=== PATIENT | female | born 1930 | race Caucasian/White ===

== ENCOUNTER 2017-11-21 13:50 | Inpatient (IN) | payer MEDICARE, OTHER ==
[~2017-11-21] VITALS: Ht 152.4 cm; Wt 64.5 kg
[~2017-11-21 13:50] MED LIST: ALBU18HF2 INH; BEPO10DR OP; BUDE180A3 INH; CALC-331 PO; CHOL20003 PO; DABI150C PO; FEXO180T94 PO; FLEC100T2 PO; FLUT16SP20 BOTHNARES; FURO-150 PO; GARL10004 PO; LEVO88TA39 PO; LISI-604 PO; MULT-1085 PO; VITC500T PO
[2017-11-21] MEDS ORDERED: ipratropium/albuterol 3ml nebule NEB ONE (14:40)
[2017-11-21 15:32] LABS: BASOPHILS # (AUTO) 0.1 X10'3 (0-0.2); BASOPHILS % (AUTO) 0.2 % (0-1); EOSINOPHILS % (AUTO) 0 % (0-6); HEMOGLOBIN 14.6 g/dl (12.0-16.0); LYMPHOCYTES # (AUTO) 0.5 X10'3 (1.1-4.8); LYMPHOCYTES % (AUTO) 2.1 % (21-51); MEAN CORPUSCULAR HEMOGLOBIN 32.4 PG (27.0-31.0); MEAN CORPUSCULAR HGB CONC 33.1 % (33.0-36.5); MEAN CORPUSCULAR VOLUME 97.8 FL (78-98); MEAN PLATELET VOLUME 7.8 FL (7.4-10.4); MONOCYTES # (AUTO) 0.7 X10'3 (0-0.9); MONOCYTES % (AUTO) 3.1 % (2-12); NEUTROPHILS # (AUTO) 20.9 X10'3 (1.8-7.7); NEUTROPHILS % (AUTO) 94.6 % (42-75); PLATELET COUNT 230 X10'3 (140-440); WHITE BLOOD COUNT 22.1 X10'3 (4.5-11.0)
[2017-11-21 15:43] LABS: INR 1.3 INR; PARTIAL THROMBOPLASTIN TIME 50 SECONDS (22-32); PROTHROMBIN TIME 13.8 SECONDS (9.0-12.0)
[2017-11-21 15:47] LABS: ALANINE AMINOTRANSFERASE 27 U/L (12-78); ALBUMIN 2.9 G/DL (3.4-5.0); ALBUMIN/GLOBULIN RATIO 0.7 (1.1-1.5); ALKALINE PHOSPHATASE 82 IU/L (46-116); ANION GAP 5 (8-16); ASPARTATE AMINO TRANSFERASE 19 U/L (10-37); BILIRUBIN,TOTAL 0.5 MG/DL (0.1-1.0); BLOOD UREA NITROGEN 13 MG/DL (7-18); BUN/CREATININE RATIO 10.7 (6.6-38.0); CHLORIDE 98 MMOL/L (99-107); CREATININE 1.22 MG/DL (0.40-0.90); GLUCOSE 118 MG/DL (70-104); SODIUM 133 MMOL/L (135-145); TOTAL CARBON DIOXIDE 30.5 MMOL/L (24-32); TOTAL PROTEIN 7.3 G/DL (6.4-8.2); eGFR 42 ML/MIN
[2017-11-21 17:19] LABS: CLARITY,URINE SLIGHTLY CLOUDY (Clear); COLOR,URINE YELLOW (Yellow); GLUCOSE, URINE NEGATIVE (Neg); KETONES,URINE TRACE mg/dl (Neg); LEUKOCYTE ESTERASE ,URINE NEGATIVE (Neg); NITRITES, URINE NEGATIVE (Neg); OCCULT BLOOD,URINE NEGATIVE (Neg); PH,URINE 6.5 (4.8-8.0); PROTEIN,URINE NEGATIVE (Neg); UROBILINOGEN,URINE 0.2 E.U/dL (0.2-1.0)
[2017-11-21 17:21] LABS: UA COLLECTION TYPE CLN CATCH MIDSTREAM
[2017-11-21 17:32] LABS: RBC,URINE 0-2 /HPF (0-2); WBC,URINE 0-4 /HPF (0-4)
[2017-11-21 17:33] LABS: BACTERIA,URINE FEW /HPF (Neg); SQUAMOUS EPITHELIAL CELL,UR MANY /LPF (FEW)
[2017-11-21] MEDS ORDERED: normal saline 1000ML IV soln IVB ONE (17:40)
[2017-11-21] MEDS ORDERED: levoFLOXACIN-Levaquin 500mg/D5 100 ML IV ONE (18:15)
[2017-11-21] MEDS ORDERED: POTA10CA69 (19:39)
[2017-11-21] MEDS ORDERED: methylPREDNISolone sod succ 125mg/2ml vial IV ONE (19:55)
[2017-11-21] MEDS: normal saline 1000ml 1,000 ML IV SCH (20:36)
[2017-11-21] MEDS ORDERED: ondansetron/PF 4mg/2ml inj IV PRN (20:40)
[2017-11-21] MEDS ORDERED: acetaminophen 325mg tablet PO PRN ×2 (20:40)
[2017-11-21] MEDS ORDERED: mag hydrox/Alum hydrox/simeth 30ml oral suspension PO PRN (20:40)
[2017-11-21] MEDS ORDERED: magnesium hydroxide 30ml (MOM) UD suspension PO PRN (20:40)
[2017-11-21] MEDS: flecainide 50mg tablet PO SCH (22:20)
[2017-11-21] MEDS: lisinopril 5mg tablet PO SCH (22:20)
[2017-11-21] MEDS: dabigatran 150mg capsule PO SCH (22:20)
[2017-11-21 22:45] VITALS: BP 106/68
[2017-11-22] MEDS: methylPREDNISolone sod succ 125mg/2ml vial IV SCH ×3 (01:41→16:43)
[2017-11-22] MEDS: ipratropium/albuterol 3ml nebule NEB PRN ×3 (01:48→12:54)
[2017-11-22 05:15] LABS: ALBUMIN 2.2 G/DL (3.4-5.0); ANION GAP 8 (8-16); BLOOD UREA NITROGEN 13 MG/DL (7-18); BUN/CREATININE RATIO 11.7 (6.6-38.0); CALCIUM 7.9 MG/DL (8.5-10.1); CHLORIDE 104 MMOL/L (99-107); CREATININE 1.11 MG/DL (0.40-0.90); GLUCOSE 163 MG/DL (70-104); POTASSIUM 4.2 MMOL/L (3.5-5.1); SODIUM 136 MMOL/L (135-145); TOTAL CARBON DIOXIDE 24.3 MMOL/L (24-32); eGFR 46 ML/MIN
[2017-11-22 06:00] VITALS: BP 112/57
[2017-11-22 06:12] LABS: BASOPHILS # (AUTO) 0.1 X10'3 (0-0.2); BASOPHILS % (AUTO) 0.4 % (0-1); EOSINOPHILS % (AUTO) 0 % (0-6); HEMATOCRIT 38.6 % (35.0-45.0); HEMOGLOBIN 12.8 g/dl (12.0-16.0); LYMPHOCYTES # (AUTO) 0.4 X10'3 (1.1-4.8); LYMPHOCYTES % (AUTO) 1.4 % (21-51); MEAN CORPUSCULAR HEMOGLOBIN 32.6 PG (27.0-31.0); MEAN CORPUSCULAR HGB CONC 33.1 % (33.0-36.5); MEAN CORPUSCULAR VOLUME 98.4 FL (78-98); MEAN PLATELET VOLUME 8.8 FL (7.4-10.4); MONOCYTES # (AUTO) 0.5 X10'3 (0-0.9); MONOCYTES % (AUTO) 1.8 % (2-12); NEUTROPHILS % (AUTO) 96.4 % (42-75); PLATELET COUNT 206 X10'3 (140-440); RED BLOOD COUNT 3.92 X10'6 (4.20-5.60); RED CELL DISTRIBUTION WIDTH 15.2 % (11.5-14.5)
[2017-11-22] MEDS: normal saline 1000ml 1,000 ML IV SCH ×3 (06:36→19:55)
[2017-11-22 06:54] LABS: BANDS% (MANUAL) 5 % (0-10); LYMPHOCYTES % (MANUAL) 1 % (21-51); MONOCYTES % (MANUAL) 2 % (2-12); NEUTROPHILS % (MANUAL) 92 % (42-75); PLATELET ESTIMATE NORMAL; TOTAL CELLS COUNTED 100
[2017-11-22] MEDS: fluticasone furoate 100MCG/puff inhaler IH SCH (08:40)
[2017-11-22] MEDS: dabigatran 150mg capsule PO SCH ×2 (09:09→19:52)
[2017-11-22] MEDS: levoTHYROXINE 88mcg tablet PO SCH (09:10)
[2017-11-22] MEDS: flecainide 50mg tablet PO SCH ×2 (09:10→19:52)
[2017-11-22] MEDS: cetirizine 10mg tablet PO SCH (09:11)
[2017-11-22] MEDS: lisinopril 5mg tablet PO SCH (09:11)
[2017-11-22] MEDS: levoFLOXACIN-Levaquin 750MG/D5 150 ML IV SCH (09:12)
[2017-11-22 11:00] VITALS: BP 115/48
[2017-11-22] MEDS ORDERED: guaiFENesin 200 MG/10 ML oral syrup UD cup PO PRN (17:45)
[2017-11-22] MEDS: ipratropium/albuterol 3ml nebule NEB SCH ×2 (19:39→23:03)
[2017-11-22 20:00] VITALS: BP 152/79
[2017-11-23] VITALS: BP_SYST 100; BP_SYST 142; BP_DIAS 48; BP_DIAS 88
[2017-11-23] MEDS: methylPREDNISolone sod succ 125mg/2ml vial IV SCH ×3 (00:10→20:10)
[2017-11-23] MEDS: ipratropium/albuterol 3ml nebule NEB SCH ×6 (03:27→23:32)
[2017-11-23 05:55] LABS: BASOPHILS % (AUTO) 0 % (0-1); EOSINOPHILS % (AUTO) 0 % (0-6); HEMATOCRIT 38.9 % (35.0-45.0); HEMOGLOBIN 12.6 g/dl (12.0-16.0); LYMPHOCYTES # (AUTO) 0.5 X10'3 (1.1-4.8); LYMPHOCYTES % (AUTO) 2.2 % (21-51); MEAN CORPUSCULAR HEMOGLOBIN 32.6 PG (27.0-31.0); MEAN CORPUSCULAR HGB CONC 32.5 % (33.0-36.5); MEAN CORPUSCULAR VOLUME 100.2 FL (78-98); MEAN PLATELET VOLUME 8.3 FL (7.4-10.4); MONOCYTES # (AUTO) 0.4 X10'3 (0-0.9); MONOCYTES % (AUTO) 1.9 % (2-12); NEUTROPHILS # (AUTO) 19.9 X10'3 (1.8-7.7); NEUTROPHILS % (AUTO) 95.9 % (42-75); PLATELET COUNT 224 X10'3 (140-440); RED BLOOD COUNT 3.88 X10'6 (4.20-5.60); RED CELL DISTRIBUTION WIDTH 15.4 % (11.5-14.5); WHITE BLOOD COUNT 20.7 X10'3 (4.5-11.0)
[2017-11-23 06:19] LABS: ALBUMIN 2.1 G/DL (3.4-5.0); ANION GAP 4 (8-16); BLOOD UREA NITROGEN 15 MG/DL (7-18); BUN/CREATININE RATIO 15.8 (6.6-38.0); CALCIUM 8.2 MG/DL (8.5-10.1); CHLORIDE 107 MMOL/L (99-107); CREATININE 0.95 MG/DL (0.40-0.90); GLUCOSE 131 MG/DL (70-104); POTASSIUM 4.5 MMOL/L (3.5-5.1); SODIUM 137 MMOL/L (135-145); TOTAL CARBON DIOXIDE 25.9 MMOL/L (24-32); eGFR 55 ML/MIN
[2017-11-23 07:00] VITALS: BP 134/83
[2017-11-23] MEDS: fluticasone furoate 100MCG/puff inhaler IH SCH (07:41)
[2017-11-23] MEDS: levoFLOXACIN-Levaquin 750MG/D5 150 ML IV SCH (07:41)
[2017-11-23] MEDS: cetirizine 10mg tablet PO SCH (07:42)
[2017-11-23] MEDS: LACTOBACILLUS RHAMNOSUS GG 15 billion unit sprinkle caps PO SCH (07:42)
[2017-11-23] MEDS: levoTHYROXINE 88mcg tablet PO SCH (07:42)
[2017-11-23] MEDS: flecainide 50mg tablet PO SCH ×2 (07:42→20:10)
[2017-11-23] MEDS: dabigatran 150mg capsule PO SCH ×2 (07:42→20:10)
[2017-11-23] MEDS: lisinopril 5mg tablet PO SCH (07:42)
[2017-11-23 11:36] VITALS: BP 165/82
[2017-11-23] MEDS ORDERED: methylPREDNISolone sod succ 125mg/2ml vial IV SCH (16:00)
[2017-11-23] MEDS: cefepime 1GM/NS ADD-VANTAGE 100 ML IV SCH (16:48)
[2017-11-23 20:00] VITALS: BP 138/83
[2017-11-23] MEDS ORDERED: ciprofloxacin 500MG tablet PO SCH (20:00)
[2017-11-24] VITALS (14 sets, daily range): BP systolic 114–153; BP diastolic 60–99
[2017-11-24] MEDS: cefepime 1GM/NS ADD-VANTAGE 100 ML IV SCH ×3 (00:13→16:23)
[2017-11-24] MEDS: ipratropium/albuterol 3ml nebule NEB SCH ×6 (03:21→23:15)
[2017-11-24 03:44] LABS: BASOPHILS % (AUTO) 0 % (0-1); EOSINOPHILS % (AUTO) 0 % (0-6); HEMOGLOBIN 13.2 g/dl (12.0-16.0); LYMPHOCYTES # (AUTO) 0.5 X10'3 (1.1-4.8); LYMPHOCYTES % (AUTO) 2.5 % (21-51); MEAN CORPUSCULAR HEMOGLOBIN 32.5 PG (27.0-31.0); MEAN CORPUSCULAR HGB CONC 32.9 % (33.0-36.5); MEAN CORPUSCULAR VOLUME 98.8 FL (78-98); MEAN PLATELET VOLUME 8.3 FL (7.4-10.4); MONOCYTES # (AUTO) 0.4 X10'3 (0-0.9); MONOCYTES % (AUTO) 2.4 % (2-12); NEUTROPHILS % (AUTO) 95.1 % (42-75); PLATELET COUNT 254 X10'3 (140-440); RED BLOOD COUNT 4.05 X10'6 (4.20-5.60); WHITE BLOOD COUNT 17.9 X10'3 (4.5-11.0)
[2017-11-24 03:52] LABS: ALBUMIN 2.3 G/DL (3.4-5.0); ANION GAP 8 (8-16); BLOOD UREA NITROGEN 15 MG/DL (7-18); BUN/CREATININE RATIO 14.6 (6.6-38.0); CALCIUM 8.3 MG/DL (8.5-10.1); CHLORIDE 108 MMOL/L (99-107); CREATININE 1.03 MG/DL (0.40-0.90); GLUCOSE 125 MG/DL (70-104); POTASSIUM 4.2 MMOL/L (3.5-5.1); SODIUM 141 MMOL/L (135-145); eGFR 50 ML/MIN
[2017-11-24] MEDS: lisinopril 5mg tablet PO SCH (07:56)
[2017-11-24] MEDS: LACTOBACILLUS RHAMNOSUS GG 15 billion unit sprinkle caps PO SCH (07:56)
[2017-11-24] MEDS: levoTHYROXINE 88mcg tablet PO SCH (07:56)
[2017-11-24] MEDS: dabigatran 150mg capsule PO SCH ×2 (07:56→20:00)
[2017-11-24] MEDS: methylPREDNISolone sod succ 125mg/2ml vial IV SCH ×2 (07:56→20:00)
[2017-11-24] MEDS: cetirizine 10mg tablet PO SCH (07:57)
[2017-11-24] MEDS: flecainide 50mg tablet PO SCH (07:57)
[2017-11-24] MEDS: fluticasone furoate 100MCG/puff inhaler IH SCH (08:13)
[2017-11-24] MEDS ORDERED: diltiazem-D5W 125mg/125ml 125 ML IV PRN (08:33)
[2017-11-24] MEDS ORDERED: diltiazem 5mg/ml 5ml inj. IV STA (08:33)
[2017-11-24 10:00] LABS: MAGNESIUM 2.1 MG/DL (1.5-2.4); TROPONIN I 0.04 NG/ML (0.0-0.05)
[2017-11-24] MEDS ORDERED: diltiazem 5mg/ml 5ml inj. IV ONE (10:55)
[2017-11-24] MEDS ORDERED: diltiazem CD 120mg capsule (once-daily) PO SCH (15:25)
[2017-11-25] MEDS: cefepime 1GM/NS ADD-VANTAGE 100 ML IV SCH ×3 (00:22→16:16)
[2017-11-25 03:00] VITALS: BP 164/79
[2017-11-25] MEDS: ipratropium/albuterol 3ml nebule NEB SCH ×5 (03:27→20:09)
[2017-11-25 06:00] VITALS: BP 129/66
[2017-11-25 06:05] LABS: BASOPHILS # (AUTO) 0.1 X10'3 (0-0.2); BASOPHILS % (AUTO) 0.9 % (0-1); EOSINOPHILS % (AUTO) 0.2 % (0-6); HEMATOCRIT 40.5 % (35.0-45.0); HEMOGLOBIN 13.5 g/dl (12.0-16.0); LYMPHOCYTES # (AUTO) 0.4 X10'3 (1.1-4.8); LYMPHOCYTES % (AUTO) 2.7 % (21-51); MEAN CORPUSCULAR HEMOGLOBIN 32.6 PG (27.0-31.0); MEAN CORPUSCULAR HGB CONC 33.3 % (33.0-36.5); MEAN CORPUSCULAR VOLUME 97.9 FL (78-98); MEAN PLATELET VOLUME 8.4 FL (7.4-10.4); MONOCYTES # (AUTO) 0.4 X10'3 (0-0.9); MONOCYTES % (AUTO) 2.6 % (2-12); NEUTROPHILS # (AUTO) 13.3 X10'3 (1.8-7.7); NEUTROPHILS % (AUTO) 93.6 % (42-75); PLATELET COUNT 263 X10'3 (140-440); RED BLOOD COUNT 4.14 X10'6 (4.20-5.60); RED CELL DISTRIBUTION WIDTH 15.8 % (11.5-14.5); WHITE BLOOD COUNT 14.2 X10'3 (4.5-11.0)
[2017-11-25 06:23] LABS: ALBUMIN 2.2 G/DL (3.4-5.0); ANION GAP 7 (8-16); BLOOD UREA NITROGEN 16 MG/DL (7-18); BUN/CREATININE RATIO 17.2 (6.6-38.0); CALCIUM 8.7 MG/DL (8.5-10.1); CHLORIDE 109 MMOL/L (99-107); CREATININE 0.93 MG/DL (0.40-0.90); GLUCOSE 126 MG/DL (70-104); SODIUM 142 MMOL/L (135-145); TOTAL CARBON DIOXIDE 26.4 MMOL/L (24-32); eGFR 57 ML/MIN
[2017-11-25] MEDS: methylPREDNISolone sod succ 125mg/2ml vial IV SCH ×2 (08:30→20:56)
[2017-11-25] MEDS: diltiazem CD 120mg capsule (once-daily) PO SCH (08:31)
[2017-11-25] MEDS: LACTOBACILLUS RHAMNOSUS GG 15 billion unit sprinkle caps PO SCH (08:31)
[2017-11-25] MEDS: cetirizine 10mg tablet PO SCH (08:31)
[2017-11-25] MEDS: dabigatran 150mg capsule PO SCH ×2 (08:31→20:56)
[2017-11-25] MEDS: lisinopril 5mg tablet PO SCH (08:31)
[2017-11-25] MEDS: levoTHYROXINE 88mcg tablet PO SCH (08:31)
[2017-11-25] MEDS: fluticasone furoate 100MCG/puff inhaler IH SCH (08:40)
[2017-11-25 11:00] VITALS: BP 122/77
[2017-11-25 15:00] VITALS: BP 121/63
[2017-11-25 18:00] VITALS: BP 121/81
[2017-11-25 22:00] VITALS: BP 130/76
[2017-11-26] MEDS: ipratropium/albuterol 3ml nebule NEB SCH ×7 (00:02→23:15)
[2017-11-26] MEDS: cefepime 1GM/NS ADD-VANTAGE 100 ML IV SCH ×3 (00:39→16:47)
[2017-11-26 02:00] VITALS: BP 132/82
[2017-11-26 06:00] VITALS: BP 170/60
[2017-11-26 06:08] LABS: BASOPHILS % (AUTO) 0 % (0-1); EOSINOPHILS % (AUTO) 0 % (0-6); HEMATOCRIT 40.1 % (35.0-45.0); HEMOGLOBIN 13.3 g/dl (12.0-16.0); LYMPHOCYTES # (AUTO) 0.8 X10'3 (1.1-4.8); LYMPHOCYTES % (AUTO) 6.6 % (21-51); MEAN CORPUSCULAR HEMOGLOBIN 32.7 PG (27.0-31.0); MEAN CORPUSCULAR HGB CONC 33.1 % (33.0-36.5); MEAN CORPUSCULAR VOLUME 98.5 FL (78-98); MEAN PLATELET VOLUME 8.4 FL (7.4-10.4); MONOCYTES # (AUTO) 0.3 X10'3 (0-0.9); MONOCYTES % (AUTO) 2.2 % (2-12); NEUTROPHILS # (AUTO) 10.9 X10'3 (1.8-7.7); NEUTROPHILS % (AUTO) 91.2 % (42-75); PLATELET COUNT 262 X10'3 (140-440); RED BLOOD COUNT 4.07 X10'6 (4.20-5.60); RED CELL DISTRIBUTION WIDTH 15.6 % (11.5-14.5)
[2017-11-26 06:18] LABS: ALBUMIN 2.2 G/DL (3.4-5.0); ANION GAP 3 (8-16); BLOOD UREA NITROGEN 19 MG/DL (7-18); BUN/CREATININE RATIO 22.9 (6.6-38.0); CALCIUM 8.8 MG/DL (8.5-10.1); CHLORIDE 108 MMOL/L (99-107); CREATININE 0.83 MG/DL (0.40-0.90); GLUCOSE 124 MG/DL (70-104); POTASSIUM 3.9 MMOL/L (3.5-5.1); SODIUM 141 MMOL/L (135-145); eGFR 65 ML/MIN
[2017-11-26] MEDS: methylPREDNISolone sod succ 125mg/2ml vial IV SCH (07:15)
[2017-11-26] MEDS: LACTOBACILLUS RHAMNOSUS GG 15 billion unit sprinkle caps PO SCH (07:15)
[2017-11-26] MEDS: lisinopril 5mg tablet PO SCH (07:15)
[2017-11-26] MEDS: levoTHYROXINE 88mcg tablet PO SCH (07:15)
[2017-11-26] MEDS: diltiazem CD 120mg capsule (once-daily) PO SCH (07:15)
[2017-11-26] MEDS: dabigatran 150mg capsule PO SCH ×2 (07:15→20:32)
[2017-11-26] MEDS: cetirizine 10mg tablet PO SCH (07:15)
[2017-11-26] MEDS: fluticasone furoate 100MCG/puff inhaler IH SCH (08:00)
[2017-11-26] MEDS ORDERED: diltiazem 30mg tablet PO ONE ×3 (09:50→22:00)
[2017-11-26 11:00] VITALS: BP 154/83
[2017-11-26 15:00] VITALS: BP 136/79
[2017-11-26] MEDS: Protein Shake (high protein) 240ml (8oz) cup PO SCH (18:44)
[2017-11-26 22:00] VITALS: BP 132/84
[2017-11-27] MEDS: cefepime 1GM/NS ADD-VANTAGE 100 ML IV SCH ×3 (00:12→16:06)
[2017-11-27] MEDS ORDERED: diltiazem 30mg tablet PO ONE (01:10)
[2017-11-27 02:00] VITALS: BP 142/83
[2017-11-27] MEDS: ipratropium/albuterol 3ml nebule NEB SCH ×2 (03:19→08:14)
[2017-11-27 05:59] LABS: BASOPHILS # (AUTO) 0.1 X10'3 (0-0.2); BASOPHILS % (AUTO) 0.4 % (0-1); EOSINOPHILS # (AUTO) 0.2 X10'3 (0-0.9); HEMATOCRIT 41.2 % (35.0-45.0); HEMOGLOBIN 13.6 g/dl (12.0-16.0); LYMPHOCYTES # (AUTO) 0.4 X10'3 (1.1-4.8); LYMPHOCYTES % (AUTO) 2.8 % (21-51); MEAN CORPUSCULAR HEMOGLOBIN 32.7 PG (27.0-31.0); MEAN PLATELET VOLUME 8.2 FL (7.4-10.4); MONOCYTES # (AUTO) 0.7 X10'3 (0-0.9); MONOCYTES % (AUTO) 4.2 % (2-12); NEUTROPHILS # (AUTO) 14.6 X10'3 (1.8-7.7); NEUTROPHILS % (AUTO) 91.6 % (42-75); PLATELET COUNT 288 X10'3 (140-440); RED BLOOD COUNT 4.17 X10'6 (4.20-5.60); RED CELL DISTRIBUTION WIDTH 15.7 % (11.5-14.5); WHITE BLOOD COUNT 15.9 X10'3 (4.5-11.0)
[2017-11-27 06:00] VITALS: BP 137/84
[2017-11-27 06:14] LABS: ALANINE AMINOTRANSFERASE 54 U/L (12-78); ALBUMIN 2.4 G/DL (3.4-5.0); ALBUMIN/GLOBULIN RATIO 0.7 (1.1-1.5); ALKALINE PHOSPHATASE 53 IU/L (46-116); ANION GAP 5 (8-16); ASPARTATE AMINO TRANSFERASE 34 U/L (10-37); BILIRUBIN,TOTAL 0.5 MG/DL (0.1-1.0); BLOOD UREA NITROGEN 19 MG/DL (7-18); CALCIUM 8.9 MG/DL (8.5-10.1); CHLORIDE 105 MMOL/L (99-107); GLUCOSE 107 MG/DL (70-104); POTASSIUM 3.8 MMOL/L (3.5-5.1); SODIUM 140 MMOL/L (135-145); TOTAL CARBON DIOXIDE 30.3 MMOL/L (24-32); TOTAL PROTEIN 5.9 G/DL (6.4-8.2); eGFR 52 ML/MIN
[2017-11-27] MEDS: Protein Shake (high protein) 240ml (8oz) cup PO SCH ×3 (08:00→18:00)
[2017-11-27] MEDS ORDERED: diltiazem CD 300mg capsule (once-daily) PO SCH (08:00)
[2017-11-27] MEDS: levoTHYROXINE 88mcg tablet PO SCH (08:14)
[2017-11-27] MEDS: lisinopril 5mg tablet PO SCH (08:14)
[2017-11-27] MEDS: predniSONE 20 mg tablet PO SCH (08:14)
[2017-11-27] MEDS: diltiazem CD 180mg cap (once-daily) PO SCH (08:15)
[2017-11-27] MEDS: dabigatran 150mg capsule PO SCH ×2 (08:15→19:50)
[2017-11-27] MEDS: LACTOBACILLUS RHAMNOSUS GG 15 billion unit sprinkle caps PO SCH (08:15)
[2017-11-27] MEDS: cetirizine 10mg tablet PO SCH (08:16)
[2017-11-27] MEDS: fluticasone furoate 100MCG/puff inhaler IH SCH (08:17)
[2017-11-27] MEDS ORDERED: digoxin 250mcg/ml 2ml ampule IV ONE (10:02)
[2017-11-27 11:00] VITALS: BP 139/86
[2017-11-27 16:58] LABS: MAGNESIUM 1.8 MG/DL (1.5-2.4)
[2017-11-27 19:00] VITALS: BP 130/88
[2017-11-27 23:00] VITALS: BP 141/98
[2017-11-28] VITALS (8 sets, daily range): BP systolic 110–134; BP diastolic 64–98
[2017-11-28] MEDS: cefepime 1GM/NS ADD-VANTAGE 100 ML IV SCH ×3 (00:07→16:44)
[2017-11-28 03:30] LABS: BASOPHILS % (AUTO) 0.3 % (0-1); EOSINOPHILS # (AUTO) 0.1 X10'3 (0-0.9); EOSINOPHILS % (AUTO) 0.6 % (0-6); HEMATOCRIT 41.6 % (35.0-45.0); HEMOGLOBIN 13.9 g/dl (12.0-16.0); LYMPHOCYTES # (AUTO) 0.9 X10'3 (1.1-4.8); LYMPHOCYTES % (AUTO) 5.4 % (21-51); MEAN CORPUSCULAR HEMOGLOBIN 32.6 PG (27.0-31.0); MEAN CORPUSCULAR HGB CONC 33.3 % (33.0-36.5); MEAN CORPUSCULAR VOLUME 97.9 FL (78-98); MEAN PLATELET VOLUME 7.7 FL (7.4-10.4); MONOCYTES # (AUTO) 0.7 X10'3 (0-0.9); MONOCYTES % (AUTO) 4.2 % (2-12); NEUTROPHILS # (AUTO) 14.2 X10'3 (1.8-7.7); NEUTROPHILS % (AUTO) 89.5 % (42-75); PLATELET COUNT 278 X10'3 (140-440); RED BLOOD COUNT 4.25 X10'6 (4.20-5.60); RED CELL DISTRIBUTION WIDTH 15.4 % (11.5-14.5); WHITE BLOOD COUNT 15.8 X10'3 (4.5-11.0)
[2017-11-28 03:45] LABS: ALANINE AMINOTRANSFERASE 58 U/L (12-78); ALBUMIN 2.3 G/DL (3.4-5.0); ALBUMIN/GLOBULIN RATIO 0.6 (1.1-1.5); ALKALINE PHOSPHATASE 55 IU/L (46-116); ANION GAP 1 (8-16); ASPARTATE AMINO TRANSFERASE 32 U/L (10-37); BILIRUBIN,TOTAL 0.5 MG/DL (0.1-1.0); BLOOD UREA NITROGEN 24 MG/DL (7-18); BUN/CREATININE RATIO 26.7 (6.6-38.0); CALCIUM 9.1 MG/DL (8.5-10.1); CHLORIDE 105 MMOL/L (99-107); GLUCOSE 96 MG/DL (70-104); POTASSIUM 4.3 MMOL/L (3.5-5.1); SODIUM 140 MMOL/L (135-145); TOTAL CARBON DIOXIDE 33.7 MMOL/L (24-32); TOTAL PROTEIN 5.9 G/DL (6.4-8.2); eGFR 59 ML/MIN
[2017-11-28] MEDS ORDERED: digoxin 125mcg (0.125mg) tablet PO SCH (08:00)
[2017-11-28] MEDS: LACTOBACILLUS RHAMNOSUS GG 15 billion unit sprinkle caps PO SCH (08:23)
[2017-11-28] MEDS: diltiazem CD 180mg cap (once-daily) PO SCH (08:24)
[2017-11-28] MEDS: cetirizine 10mg tablet PO SCH (08:24)
[2017-11-28] MEDS: predniSONE 20 mg tablet PO SCH (08:24)
[2017-11-28] MEDS: lisinopril 5mg tablet PO SCH (08:24)
[2017-11-28] MEDS: levoTHYROXINE 88mcg tablet PO SCH (08:24)
[2017-11-28] MEDS: Protein Shake (high protein) 240ml (8oz) cup PO SCH ×3 (08:25→18:05)
[2017-11-28] MEDS: dabigatran 150mg capsule PO SCH ×2 (08:29→20:52)
[2017-11-28] MEDS: fluticasone furoate 100MCG/puff inhaler IH SCH (08:49)
[2017-11-28] MEDS ORDERED: amiodarone 150mg/dext, iso-os 100 ML IV ONE (12:45)
[2017-11-28] MEDS: amiodarone/D5 450MG/250ML BAG 250 ML IV SCH ×2 (13:32→21:17)
[2017-11-28] MEDS: furosemide 20 MG/2 ML vial IV SCH ×2 (13:39→20:52)
[2017-11-28] MEDS: albuterol 2.5 MG/3 ML nebule NEB PRN (20:53)
[2017-11-29] VITALS (10 sets, daily range): BP systolic 107–136; BP diastolic 68–98
[2017-11-29] MEDS: cefepime 1GM/NS ADD-VANTAGE 100 ML IV SCH ×3 (00:40→16:45)
[2017-11-29 06:08] LABS: BASOPHILS # (AUTO) 0.1 X10'3 (0-0.2); BASOPHILS % (AUTO) 0.6 % (0-1); EOSINOPHILS # (AUTO) 0.2 X10'3 (0-0.9); EOSINOPHILS % (AUTO) 1.1 % (0-6); HEMATOCRIT 45.5 % (35.0-45.0); HEMOGLOBIN 14.9 g/dl (12.0-16.0); LYMPHOCYTES # (AUTO) 1.6 X10'3 (1.1-4.8); LYMPHOCYTES % (AUTO) 11.2 % (21-51); MEAN CORPUSCULAR HEMOGLOBIN 32.1 PG (27.0-31.0); MEAN CORPUSCULAR HGB CONC 32.7 % (33.0-36.5); MEAN CORPUSCULAR VOLUME 98.2 FL (78-98); MEAN PLATELET VOLUME 8.4 FL (7.4-10.4); MONOCYTES # (AUTO) 0.7 X10'3 (0-0.9); MONOCYTES % (AUTO) 4.8 % (2-12); NEUTROPHILS # (AUTO) 11.5 X10'3 (1.8-7.7); NEUTROPHILS % (AUTO) 82.3 % (42-75); PLATELET COUNT 292 X10'3 (140-440); RED BLOOD COUNT 4.63 X10'6 (4.20-5.60); RED CELL DISTRIBUTION WIDTH 15.4 % (11.5-14.5)
[2017-11-29 06:33] LABS: ALANINE AMINOTRANSFERASE 58 U/L (12-78); ALBUMIN 2.4 G/DL (3.4-5.0); ALBUMIN/GLOBULIN RATIO 0.6 (1.1-1.5); ALKALINE PHOSPHATASE 57 IU/L (46-116); ANION GAP 5 (8-16); ASPARTATE AMINO TRANSFERASE 27 U/L (10-37); BILIRUBIN,TOTAL 0.5 MG/DL (0.1-1.0); BLOOD UREA NITROGEN 29 MG/DL (7-18); BUN/CREATININE RATIO 26.4 (6.6-38.0); CALCIUM 9.2 MG/DL (8.5-10.1); CHLORIDE 101 MMOL/L (99-107); GLUCOSE 86 MG/DL (70-104); SODIUM 140 MMOL/L (135-145); TOTAL CARBON DIOXIDE 33.9 MMOL/L (24-32); TOTAL PROTEIN 6.2 G/DL (6.4-8.2); eGFR 47 ML/MIN
[2017-11-29] MEDS: cetirizine 10mg tablet PO SCH (07:44)
[2017-11-29] MEDS: levoTHYROXINE 88mcg tablet PO SCH (07:45)
[2017-11-29] MEDS: LACTOBACILLUS RHAMNOSUS GG 15 billion unit sprinkle caps PO SCH (07:45)
[2017-11-29] MEDS: predniSONE 20 mg tablet PO SCH (07:45)
[2017-11-29] MEDS: diltiazem CD 180mg cap (once-daily) PO SCH (07:45)
[2017-11-29] MEDS: lisinopril 5mg tablet PO SCH (07:45)
[2017-11-29] MEDS: dabigatran 150mg capsule PO SCH ×2 (07:47→20:37)
[2017-11-29] MEDS: Protein Shake (high protein) 240ml (8oz) cup PO SCH ×4 (08:00→20:38)
[2017-11-29] MEDS: albuterol 2.5 MG/3 ML nebule NEB PRN ×2 (08:32→18:41)
[2017-11-29] MEDS: fluticasone furoate 100MCG/puff inhaler IH SCH ×2 (08:35→10:59)
[2017-11-29] MEDS: furosemide 20 MG/2 ML vial IV SCH ×2 (09:12→20:37)
[2017-11-29] MEDS ORDERED: metoprolol tartrate 12.5mg (1/2 tablet) PO SCH (09:45)
[2017-11-29] MEDS ORDERED: digoxin 250mcg/ml 2ml ampule IV SCH (12:40)
[2017-11-29] MEDS ORDERED: digoxin 250mcg/ml 2ml ampule IV ONE (12:55)
[2017-11-29] MEDS: diltiazem 30mg tablet PO SCH ×2 (14:48→20:37)
[2017-11-29] MEDS: amiodarone 200mg tablet PO SCH ×2 (14:48→20:38)
[2017-11-29] MEDS ORDERED: amiodarone/D5 360MG/200ML BAG 250 ML IV SCH (16:45)
[2017-11-30] MEDS: cefepime 1GM/NS ADD-VANTAGE 100 ML IV SCH ×2 (00:27→07:43)
[2017-11-30 03:00] VITALS: BP 128/81
[2017-11-30 05:29] LABS: BASOPHILS % (AUTO) 0.1 % (0-1); EOSINOPHILS # (AUTO) 0.1 X10'3 (0-0.9); EOSINOPHILS % (AUTO) 0.4 % (0-6); HEMATOCRIT 43.7 % (35.0-45.0); HEMOGLOBIN 14.6 g/dl (12.0-16.0); LYMPHOCYTES # (AUTO) 0.9 X10'3 (1.1-4.8); LYMPHOCYTES % (AUTO) 6.7 % (21-51); MEAN CORPUSCULAR HEMOGLOBIN 32.1 PG (27.0-31.0); MEAN CORPUSCULAR HGB CONC 33.4 % (33.0-36.5); MEAN PLATELET VOLUME 8.5 FL (7.4-10.4); MONOCYTES # (AUTO) 1.4 X10'3 (0-0.9); MONOCYTES % (AUTO) 9.9 % (2-12); NEUTROPHILS # (AUTO) 11.5 X10'3 (1.8-7.7); NEUTROPHILS % (AUTO) 82.9 % (42-75); PLATELET COUNT 298 X10'3 (140-440); RED BLOOD COUNT 4.55 X10'6 (4.20-5.60); RED CELL DISTRIBUTION WIDTH 14.1 % (11.5-14.5); WHITE BLOOD COUNT 13.9 X10'3 (4.5-11.0)
[2017-11-30 05:47] LABS: ALANINE AMINOTRANSFERASE 55 U/L (12-78); ALBUMIN 2.3 G/DL (3.4-5.0); ALBUMIN/GLOBULIN RATIO 0.7 (1.1-1.5); ALKALINE PHOSPHATASE 56 IU/L (46-116); ANION GAP 5 (8-16); ASPARTATE AMINO TRANSFERASE 18 U/L (10-37); BILIRUBIN,TOTAL 0.4 MG/DL (0.1-1.0); BLOOD UREA NITROGEN 36 MG/DL (7-18); CALCIUM 8.7 MG/DL (8.5-10.1); CHLORIDE 101 MMOL/L (99-107); GLUCOSE 90 MG/DL (70-104); SODIUM 141 MMOL/L (135-145); TOTAL CARBON DIOXIDE 35.1 MMOL/L (24-32); TOTAL PROTEIN 5.8 G/DL (6.4-8.2); eGFR 42 ML/MIN
[2017-11-30 06:00] VITALS: BP 113/71
[2017-11-30] MEDS: dabigatran 150mg capsule PO SCH (07:41)
[2017-11-30] MEDS: diltiazem 30mg tablet PO SCH ×2 (07:42→12:51)
[2017-11-30] MEDS: lisinopril 5mg tablet PO SCH (07:42)
[2017-11-30] MEDS: cetirizine 10mg tablet PO SCH (07:42)
[2017-11-30] MEDS: LACTOBACILLUS RHAMNOSUS GG 15 billion unit sprinkle caps PO SCH (07:42)
[2017-11-30] MEDS: predniSONE 20 mg tablet PO SCH (07:42)
[2017-11-30] MEDS: amiodarone 200mg tablet PO SCH ×2 (07:42→12:52)
[2017-11-30] MEDS: levoTHYROXINE 88mcg tablet PO SCH (07:42)
[2017-11-30] MEDS: furosemide 20 MG/2 ML vial IV SCH (07:42)
[2017-11-30] MEDS ORDERED: diltiazem CD 120mg capsule (once-daily) PO SCH (08:00)
[2017-11-30] MEDS ORDERED: diltiazem CD 300mg capsule (once-daily) PO SCH (08:00)
[2017-11-30] MEDS: fluticasone furoate 100MCG/puff inhaler IH SCH (08:41)
[2017-11-30] MEDS ORDERED: furosemide 20 MG/2 ML vial IV ONE (10:45)
[2017-11-30 11:00] VITALS: BP 113/71
[2017-11-30] MEDS: Protein Shake (high protein) 240ml (8oz) cup PO SCH (12:42)
== END 2017-11-30 13:35 | DRG 871 ==
LOC: ER 13:51 → ED HOLD 20:36 → SUR 3N 21:50 → MED 3N 11-22 17:53 → PCU 3S 11-24 08:55
PROVIDERS: ADMIT Internal Medicine; ATTEND Family Medicine
DX: A41.52 Sepsis due to Pseudomonas (principal); J18.9 Pneumonia, unspecified organism; E43 Unspecified severe protein-calorie malnutrition; N17.9 Acute kidney failure, unspecified; I47.2 Ventricular tachycardia; I48.0 Paroxysmal atrial fibrillation; J44.0 Chronic obstructive pulmonary disease with (acute) lower respiratory infection; J45.901 Unspecified asthma with (acute) exacerbation; I48.92 Unspecified atrial flutter; Z99.81 Dependence on supplemental oxygen; J44.1 Chronic obstructive pulmonary disease with (acute) exacerbation; E86.0 Dehydration; I10 Essential (primary) hypertension; E03.9 Hypothyroidism, unspecified; I25.10 Atherosclerotic heart disease of native coronary artery without angina pectoris; T38.0X5A Adverse effect of glucocorticoids and synthetic analogues, initial encounter; Z95.0 Presence of cardiac pacemaker; Z79.899 Other long term (current) drug therapy; Z79.01 Long term (current) use of anticoagulants; Z87.891 Personal history of nicotine dependence; Z82.49 Family history of ischemic heart disease and other diseases of the circulatory system; Y92.89 Other specified places as the place of occurrence of the external cause; Z68.27 Body mass index [BMI] 27.0-27.9, adult
CPT/HCPCS: 36415; 71045; 71250; 80048; 80053; 80162; 81001; 83605; 83735; 83880; 84443; 84484; 85025; 85610; 85730; 87040; 87070; 87077; 87186; 87502; 87503; 92616; 93005; 93306; 94640; 94760; 96361; 96365; 96375; 97116; 97161; 97530; 99285; A6212; A6213; A6257; A6258; J0282; J0692; J1160; J1940; J1956; J2930; J3490; J7030; J7512

== ENCOUNTER 2017-12-23 10:19 | Inpatient (IN) | payer MEDICARE, OTHER ==
[~2017-12-23] VITALS: Ht 165.1 cm; Wt 59.1 kg
[~2017-12-23 10:19] MED LIST changes: -FURO-150 PO; -MULT-1085 PO; +POTA10CA69
[2017-12-23] MEDS ORDERED: normal saline 1000ML IV soln IV ONE (10:50)
[2017-12-23 12:10] LABS: BASOPHILS % (AUTO) 0 % (0-1); EOSINOPHILS % (AUTO) 0 % (0-6); HEMATOCRIT 45.5 % (35.0-45.0); HEMOGLOBIN 15.3 g/dl (12.0-16.0); LYMPHOCYTES # (AUTO) 0.5 X10'3 (1.1-4.8); LYMPHOCYTES % (AUTO) 2.5 % (21-51); MEAN CORPUSCULAR HEMOGLOBIN 32.4 PG (27.0-31.0); MEAN CORPUSCULAR HGB CONC 33.6 % (33.0-36.5); MEAN CORPUSCULAR VOLUME 96.5 FL (78-98); MONOCYTES # (AUTO) 0.3 X10'3 (0-0.9); MONOCYTES % (AUTO) 1.6 % (2-12); NEUTROPHILS # (AUTO) 18.6 X10'3 (1.8-7.7); NEUTROPHILS % (AUTO) 95.9 % (42-75); PLATELET COUNT 373 X10'3 (140-440); RED BLOOD COUNT 4.71 X10'6 (4.20-5.60); RED CELL DISTRIBUTION WIDTH 15.8 % (11.5-14.5); WHITE BLOOD COUNT 19.4 X10'3 (4.5-11.0)
[2017-12-23 12:23] LABS: ANISOCYTOSIS 1+; PLATELET ESTIMATE NORMAL; TOTAL CELLS COUNTED 100
[2017-12-23 12:26] LABS: ALANINE AMINOTRANSFERASE 23 U/L (12-78); ALBUMIN 1.8 G/DL (3.4-5.0); ALBUMIN/GLOBULIN RATIO 0.5 (1.1-1.5); ALKALINE PHOSPHATASE 85 IU/L (46-116); ANION GAP 2 (8-16); ASPARTATE AMINO TRANSFERASE 27 U/L (10-37); BILIRUBIN,TOTAL 0.5 MG/DL (0.1-1.0); BLOOD UREA NITROGEN 28 MG/DL (7-18); BUN/CREATININE RATIO 15.1 (6.6-38.0); CALCIUM 9.2 MG/DL (8.5-10.1); CHLORIDE 100 MMOL/L (99-107); CREATININE 1.85 MG/DL (0.40-0.90); GLUCOSE 149 MG/DL (70-104); POTASSIUM 4.1 MMOL/L (3.5-5.1); SODIUM 130 MMOL/L (135-145); TOTAL CARBON DIOXIDE 28.1 MMOL/L (24-32); TOTAL PROTEIN 5.8 G/DL (6.4-8.2); eGFR 26 ML/MIN
[2017-12-23] MEDS ORDERED: metroNIDAZOLE-Flagyl 500mg/NS 100 ML IV ONE (12:45)
[2017-12-23] MEDS ORDERED: mag hydrox/Alum hydrox/simeth 30ml oral suspension PO PRN (13:30)
[2017-12-23] MEDS ORDERED: ondansetron/PF 4mg/2ml inj IV PRN (13:30)
[2017-12-23] MEDS ORDERED: magnesium 2GM in 50ml NS 50 ML IV PRN (13:30)
[2017-12-23] MEDS ORDERED: HYDROmorphone 1 mg/ml syringe IV PRN (13:30)
[2017-12-23] MEDS ORDERED: magnesium 4gm in 100ml NS 100 ML IV PRN (13:30)
[2017-12-23] MEDS ORDERED: magnesium hydroxide 30ml (MOM) UD suspension PO PRN (13:30)
[2017-12-23] MEDS ORDERED: magnesium Cl slow-release 64mg tablet PO PRN (13:30)
[2017-12-23] MEDS ORDERED: potassium Cl 40MEQ/NS 500ml 500 ML IV PRN ×2 (13:30)
[2017-12-23] MEDS ORDERED: potassium Cl 20 mEq SR tablet PO PRN ×2 (13:30)
[2017-12-23] MEDS ORDERED: acetaminophen 325mg tablet PO PRN (13:30)
[2017-12-23] MEDS ORDERED: non-formulary drug (Albuterol Sulfate (Ventolin Hfa) 2 PUFFS) INH SCH (13:40)
[2017-12-23] MEDS ORDERED: metroNIDAZOLE-Flagyl 500mg/NS 100 ML IV SCH (13:40)
[2017-12-23] MEDS ORDERED: levoFLOXACIN-Levaquin 500mg/D5 100 ML IV SCH (13:40)
[2017-12-23] MEDS ORDERED: normal saline 1000ml 1,000 ML IV ONE (14:22)
[2017-12-23 14:24] LABS: PROTHROMBIN TIME > 148.0 SECONDS (9.0-12.0)
[2017-12-23 14:27] LABS: INR > 9.0 INR; PARTIAL THROMBOPLASTIN TIME 121 SECONDS (22-32)
[2017-12-23] MEDS ORDERED: phytonadione 10 MG/1 ML amp PO ONE (14:50)
[2017-12-23 15:10] LABS: CLARITY,URINE CLEAR (Clear); COLOR,URINE YELLOW (Yellow); GLUCOSE, URINE NEGATIVE (Neg); KETONES,URINE NEGATIVE (Neg); LEUKOCYTE ESTERASE ,URINE NEGATIVE (Neg); NITRITES, URINE NEGATIVE (Neg); OCCULT BLOOD,URINE TRACE-INTACT (Neg); PROTEIN,URINE TRACE mg/dl (Neg); UA COLLECTION TYPE CLN CATCH MIDSTREAM; UROBILINOGEN,URINE 0.2 E.U/dL (0.2-1.0)
[2017-12-23 15:11] LABS: BACTERIA,URINE NONE SEEN /HPF (Neg); MUCUS STRANDS FEW /LPF (Neg); RBC,URINE NONE SEEN /HPF (0-2); SQUAMOUS EPITHELIAL CELL,UR MODERATE /LPF (FEW); WBC,URINE NONE SEEN /HPF (0-4)
[2017-12-23] MEDS: normal saline 1000ml 1,000 ML IV SCH (16:13)
[2017-12-23] MEDS ORDERED: albumin (Human) 5% 250 ML IV solution IV ONE (16:31)
[2017-12-23 18:30] VITALS: BP 94/42
[2017-12-23 19:00] VITALS: BP 86/55
[2017-12-23] MEDS ORDERED: ALEN70TA13 (19:44)
[2017-12-23] MEDS ORDERED: non-formulary drug (Flecainide Acetate 1 TAB) PO SCH (20:00)
[2017-12-23] MEDS: flecainide 50mg tablet PO SCH (20:35)
[2017-12-23] MEDS: albuterol 2.5 MG/3 ML nebule NEB PRN (22:27)
[2017-12-23] MEDS ORDERED: normal saline 1000ml 1,000 ML IVB ONE (22:59)
[2017-12-23] MEDS ORDERED: DOPamine 400mg/D5W 250ml 250 ML IV PRN (22:59)
[2017-12-23] MEDS ORDERED: albumin (human) 25% 100 ML IV solution IV ONE (23:00)
[2017-12-23 23:11] LABS: BASOPHILS % (AUTO) 0.1 % (0-1); EOSINOPHILS % (AUTO) 0 % (0-6); HEMATOCRIT 39.2 % (35.0-45.0); HEMOGLOBIN 13.1 g/dl (12.0-16.0); MEAN CORPUSCULAR HEMOGLOBIN 32.8 PG (27.0-31.0); MEAN CORPUSCULAR HGB CONC 33.5 % (33.0-36.5); MEAN CORPUSCULAR VOLUME 98.1 FL (78-98); MONOCYTES # (AUTO) 0.2 X10'3 (0-0.9); MONOCYTES % (AUTO) 0.8 % (2-12); NEUTROPHILS # (AUTO) 18.8 X10'3 (1.8-7.7); NEUTROPHILS % (AUTO) 94.1 % (42-75); PLATELET COUNT 320 X10'3 (140-440); RED BLOOD COUNT 3.99 X10'6 (4.20-5.60); RED CELL DISTRIBUTION WIDTH 16.1 % (11.5-14.5)
[2017-12-23 23:15] VITALS: BP 83/48
[2017-12-23 23:25] LABS: ALBUMIN 1.9 G/DL (3.4-5.0); ANION GAP 13 (8-16); BLOOD UREA NITROGEN 34 MG/DL (7-18); BUN/CREATININE RATIO 13.9 (6.6-38.0); CALCIUM 8.2 MG/DL (8.5-10.1); CHLORIDE 106 MMOL/L (99-107); CREATININE 2.45 MG/DL (0.40-0.90); GLUCOSE 127 MG/DL (70-104); PHOSPHORUS 4.3 MG/DL (2.3-4.5); POTASSIUM 4.8 MMOL/L (3.5-5.1); SODIUM 140 MMOL/L (135-145); TOTAL CARBON DIOXIDE 20.9 MMOL/L (24-32); TROPONIN I < 0.04 NG/ML (0.0-0.05); eGFR 19 ML/MIN
[2017-12-24] VITALS (39 sets, daily range): BP systolic 62–152; BP diastolic 36–69
[2017-12-24] MEDS: hydrocortisone sod succ/PF 100mg/2ml inj. IV SCH ×3 (00:08→17:42)
[2017-12-24] MEDS: normal saline 1000ml 1,000 ML IV SCH ×2 (00:12→09:29)
[2017-12-24] MEDS: piperacillin-tazo 2.25gm/50ml 50 ML IV SCH ×2 (00:13→07:36)
[2017-12-24] MEDS ORDERED: normal saline 500ml IV soln 500 ML IV ONE ×2 (02:15→05:15)
[2017-12-24] MEDS ORDERED: oxyCODONE/APAP 5-325mg tablet PO PRN (02:15)
[2017-12-24] MEDS ORDERED: vancomycin 125mg/5ml ORAL solution 5ml UD bottle PO ONE (02:15)
[2017-12-24] MEDS ORDERED: vancomycin 125mg/5ml ORAL solution 5ml UD bottle ONE (03:19)
[2017-12-24] MEDS: albuterol 2.5 MG/3 ML nebule NEB PRN (04:24)
[2017-12-24 05:11] LABS: BASOPHILS % (AUTO) 0 % (0-1); EOSINOPHILS # (AUTO) 0.2 X10'3 (0-0.9); EOSINOPHILS % (AUTO) 1.5 % (0-6); HEMATOCRIT 30.9 % (35.0-45.0); HEMOGLOBIN 10.3 g/dl (12.0-16.0); LYMPHOCYTES # (AUTO) 0.6 X10'3 (1.1-4.8); LYMPHOCYTES % (AUTO) 3.9 % (21-51); MEAN CORPUSCULAR HEMOGLOBIN 32.5 PG (27.0-31.0); MEAN CORPUSCULAR HGB CONC 33.3 % (33.0-36.5); MEAN CORPUSCULAR VOLUME 97.5 FL (78-98); MEAN PLATELET VOLUME 8.2 FL (7.4-10.4); MONOCYTES # (AUTO) 0.2 X10'3 (0-0.9); MONOCYTES % (AUTO) 1.3 % (2-12); NEUTROPHILS # (AUTO) 14.8 X10'3 (1.8-7.7); NEUTROPHILS % (AUTO) 93.3 % (42-75); PLATELET COUNT 286 X10'3 (140-440); RED BLOOD COUNT 3.17 X10'6 (4.20-5.60); RED CELL DISTRIBUTION WIDTH 16.1 % (11.5-14.5); WHITE BLOOD COUNT 15.9 X10'3 (4.5-11.0)
[2017-12-24] MEDS ORDERED: albumin (human) 25% 100 ML IV solution IV ONE (05:15)
[2017-12-24 05:31] LABS: ALANINE AMINOTRANSFERASE 17 U/L (12-78); ALBUMIN 2.7 G/DL (3.4-5.0); ALBUMIN/GLOBULIN RATIO 1.3 (1.1-1.5); ALKALINE PHOSPHATASE 40 IU/L (46-116); ANION GAP 12 (8-16); ASPARTATE AMINO TRANSFERASE 24 U/L (10-37); BILIRUBIN,TOTAL 0.7 MG/DL (0.1-1.0); BLOOD UREA NITROGEN 36 MG/DL (7-18); BUN/CREATININE RATIO 17.8 (6.6-38.0); CALCIUM 7.5 MG/DL (8.5-10.1); CHLORIDE 110 MMOL/L (99-107); CREATININE 2.02 MG/DL (0.40-0.90); GLUCOSE 119 MG/DL (70-104); MAGNESIUM 1.9 MG/DL (1.5-2.4); POTASSIUM 4.5 MMOL/L (3.5-5.1); SODIUM 143 MMOL/L (135-145); TOTAL CARBON DIOXIDE 21.4 MMOL/L (24-32); TOTAL PROTEIN 4.8 G/DL (6.4-8.2); eGFR 23 ML/MIN
[2017-12-24 06:30] LABS: TOTAL CELLS COUNTED 100
[2017-12-24 06:32] LABS: ANISOCYTOSIS 1+; PLATELET ESTIMATE NORMAL; TOXIC VACUOLATION 1+
[2017-12-24 06:33] LABS: POIKILOCYTOSIS FEW
[2017-12-24] MEDS: flecainide 50mg tablet PO SCH (07:57)
[2017-12-24] MEDS ORDERED: BUDESONIDE INH SCH (08:00)
[2017-12-24] MEDS ORDERED: FEXOFENADINE 180 MG PO SCH (08:00)
[2017-12-24] MEDS ORDERED: loratadine 10mg tablet PO SCH (08:00)
[2017-12-24] MEDS ORDERED: BEPOTASTINE BESILATE OP SCH (08:00)
[2017-12-24] MEDS ORDERED: K and/or MAG REPLACEMENT MC SCH (08:00)
[2017-12-24] MEDS ORDERED: CHOLECALCIFEROL PO SCH (08:00)
[2017-12-24] MEDS ORDERED: [UNRECOGNIZED DRUG - OTHER] OP SCH (08:00)
[2017-12-24] MEDS ORDERED: fluticasone furoate 100MCG/puff inhaler IH SCH (08:00)
[2017-12-24] MEDS ORDERED: levoTHYROXINE 88mcg tablet PO SCH (08:00)
[2017-12-24] MEDS ORDERED: vitamin D (cholecalciferol) 1,000 unit tablet PO SCH (08:00)
[2017-12-24] MEDS ORDERED: fluticasone nasal spray 16GM bottle NS SCH (08:00)
[2017-12-24] MEDS ORDERED: midazolam 100mg in NS 100ml 100 ML IV PRN (10:01)
[2017-12-24] MEDS ORDERED: FENTANYL-0.9 % NACL/PF 100 ML IV PRN (10:01)
[2017-12-24] MEDS ORDERED: ipratropium/albuterol 3ml nebule NEB PRN (10:05)
[2017-12-24] MEDS ORDERED: fentaNYL/PF 50MCG/1 ML 2ML syringe IV PRN (10:05)
[2017-12-24] MEDS ORDERED: midazolam 2 mg/2 ml injection IV ONE (10:05)
[2017-12-24] MEDS ORDERED: MIDAZolam 5mg/ml 2ml vial ONE (10:09)
[2017-12-24] MEDS: vancomycin 250MG/10ML UD oral solution 10ML BOTTLE PO SCH ×2 (10:35→14:00)
[2017-12-24 10:51] LABS: OXYGEN SATURATION (MIXED VEN) 88.9 % (60-80); PO2 MIXED VENOUS (TEMP COR) 64.1 mmHg (35-46)
[2017-12-24 10:51] LABS: ABG BASE EXCESS -15.7 mmol/L (-2.0-3.0); ABG HCO3 12.3 mmol/L (22.0-26.0); ABG OXYGEN SATURATION 99.2 % (95-98); ABG PCO2 (T) 38.3 mmHg (32.0-45.0); ABG PH (T) 7.126 (7.350-7.450); ABG PO2 (T) 241.2 mmHg (83-108); ALLEN'S TEST Positive; FCOHb 0.1 % (0.5-1.5); FMetHb 0.1 % (0.3-1.12); MINUTE VOLUME 8 L/min; PEEP 5 cm H2O; RESPIRATORY RATE 20 b/min; RESPIRATORY RATE (OBSERVED) 22 b/min; TIDAL VOLUME 350 mL; TOTAL HEMOGLOBIN 7.9 G/dl (12.0-16.0)
[2017-12-24] MEDS ORDERED: ipratropium/albuterol 3ml nebule NEB SCH (11:00)
[2017-12-24] MEDS ORDERED: vasopressin inj. 60 UNIT in normal saline 100ml IV soln 97 ML IV SCH (11:30)
[2017-12-24] MEDS ORDERED: clindamycin phosphate 150mg/ml inj. ONE ×2 (11:47→11:48)
[2017-12-24] MEDS ORDERED: gentamicin 40 MG/1 ML inj ONE (11:47)
[2017-12-24] MEDS ORDERED: NORepinephrine 8mg/ 250ml NS 250 ML IV SCH (12:20)
[2017-12-24] MEDS ORDERED: rocuronium 10mg/ml inj IV ONE (12:44)
[2017-12-24] MEDS ORDERED: ringers solution, lacted 1,000 ML IV ONE (12:51)
[2017-12-24] MEDS ORDERED: sodium bicarbonate (8.4%) inj. 50 MEQ in normal saline 1000ml 1,000 ML IV SCH (13:00)
[2017-12-24] MEDS ORDERED: ringers solution, lacted 1,000 ML IV SCH (13:01)
[2017-12-24] MEDS ORDERED: ondansetron/PF 4mg/2ml inj IV PRN (13:05)
[2017-12-24] MEDS ORDERED: IDARUCIZUMAB 2.5 GM/50 ML IV ONE (13:05)
[2017-12-24 13:22] LABS: D-DIMER 2.14 MG/L FEU (0-0.50)
[2017-12-24] MEDS ORDERED: heparin 10,000 units/1 ML INJ ONE (13:26)
[2017-12-24 13:31] LABS: PLATELET COUNT 205 X10'3 (140-440)
[2017-12-24 13:34] LABS: HEMATOCRIT 22.5 % (35.0-45.0); HEMOGLOBIN 7.4 g/dl (12.0-16.0); MEAN CORPUSCULAR HEMOGLOBIN 32.7 PG (27.0-31.0); MEAN PLATELET VOLUME 8.2 FL (7.4-10.4); PLATELET COUNT 205 X10'3 (140-440); RED BLOOD COUNT 2.27 X10'6 (4.20-5.60); RED CELL DISTRIBUTION WIDTH 16.9 % (11.5-14.5); WHITE BLOOD COUNT 12.2 X10'3 (4.5-11.0)
[2017-12-24 13:46] LABS: ABG BASE EXCESS 11.4 mmol/L (-2.0-3.0); ABG HCO3 34.2 mmol/L (22.0-26.0); ABG OXYGEN SATURATION 98.4 % (95-98); ABG PH (T) 7.595 (7.350-7.450); ABG PO2 (T) 234.7 mmHg (83-108); FCOHb 0.3 % (0.5-1.5); FMetHb 0.3 % (0.3-1.12); FO2Hb 97.8 % (94-100); RESPIRATORY RATE 20 b/min; TOTAL HEMOGLOBIN 5.1 G/dl (12.0-16.0)
[2017-12-24] MEDS ORDERED: epiNEPHrine inj 5 MG, calcium chloride inj. 1,000 MG in normal saline 250ml IV soln 235 ML IV PRN (14:05)
[2017-12-24 16:10] LABS: ABG HCO3 5.2 mmol/L (22.0-26.0); ABG OXYGEN SATURATION 98.6 % (95-98); ABG PCO2 (T) 29.6 mmHg (32.0-45.0); ABG PH (T) 6.864 (7.350-7.450); ABG PO2 (T) 211.7 mmHg (83-108); FMetHb 0.2 % (0.3-1.12); FO2Hb 98.4 % (94-100); TOTAL HEMOGLOBIN 6.1 G/dl (12.0-16.0)
[2017-12-24 16:22] LABS: BASOPHILS % (AUTO) 0.2 % (0-1); EOSINOPHILS % (AUTO) 0.2 % (0-6); LYMPHOCYTES # (AUTO) 2.5 X10'3 (1.1-4.8); LYMPHOCYTES % (AUTO) 41.6 % (21-51); MEAN CORPUSCULAR HEMOGLOBIN 31.5 PG (27.0-31.0); MEAN CORPUSCULAR HGB CONC 34.1 % (33.0-36.5); MEAN CORPUSCULAR VOLUME 92.5 FL (78-98); MEAN PLATELET VOLUME 8.1 FL (7.4-10.4); MONOCYTES # (AUTO) 0.1 X10'3 (0-0.9); NEUTROPHILS # (AUTO) 3.4 X10'3 (1.8-7.7); RED BLOOD COUNT 1.86 X10'6 (4.20-5.60); RED CELL DISTRIBUTION WIDTH 15.2 % (11.5-14.5); WHITE BLOOD COUNT 5.9 X10'3 (4.5-11.0)
[2017-12-24 16:37] LABS: HEMATOCRIT 17.2 % (35.0-45.0); HEMOGLOBIN 5.9 g/dl (12.0-16.0); PLATELET COUNT 43 X10'3 (140-440)
[2017-12-24 16:47] LABS: ALANINE AMINOTRANSFERASE 246 U/L (12-78); ALBUMIN 1.2 G/DL (3.4-5.0); ALBUMIN/GLOBULIN RATIO 0.9 (1.1-1.5); ALKALINE PHOSPHATASE 43 IU/L (46-116); ANION GAP 13 (8-16); ASPARTATE AMINO TRANSFERASE 520 U/L (10-37); BILIRUBIN,TOTAL 0.5 MG/DL (0.1-1.0); BLOOD UREA NITROGEN 29 MG/DL (7-18); BUN/CREATININE RATIO 16.5 (6.6-38.0); CHLORIDE 124 MMOL/L (99-107); CREATININE 1.76 MG/DL (0.40-0.90); GLUCOSE 93 MG/DL (70-104); PHOSPHORUS 7.3 MG/DL (2.3-4.5); TOTAL CARBON DIOXIDE 34.3 MMOL/L (24-32); TOTAL PROTEIN 2.6 G/DL (6.4-8.2); eGFR 27 ML/MIN
[2017-12-24 16:57] LABS: CALCIUM 16.9 MG/DL (8.5-10.1); POTASSIUM 7.2 MMOL/L (3.5-5.1); SODIUM 171 MMOL/L (135-145)
[2017-12-24 17:26] LABS: ABG BASE EXCESS -15.8 mmol/L (-2.0-3.0); ABG HCO3 12.3 mmol/L (22.0-26.0); ABG OXYGEN SATURATION 95.4 % (95-98); ABG PCO2 (T) 38.9 mmHg (32.0-45.0); ABG PH (T) 7.118 (7.350-7.450); ABG PO2 (T) 91.4 mmHg (83-108); FCOHb 0.3 % (0.5-1.5); FMetHb 0.3 % (0.3-1.12); FO2Hb 94.8 % (94-100); MINUTE VOLUME 9 L/min; PEEP 5 cm H2O; RESPIRATORY RATE 24 b/min; RESPIRATORY RATE (OBSERVED) 24 b/min; TIDAL VOLUME 350 mL
[2017-12-24] MEDS ORDERED: lactobacillus rhamnosus 10,000 MMU CELLS/CAPSULE PO SCH (17:30)
[2017-12-24 17:32] LABS: BASOPHILS % (AUTO) 0.2 % (0-1); EOSINOPHILS % (AUTO) 0.1 % (0-6); LYMPHOCYTES # (AUTO) 1.7 X10'3 (1.1-4.8); LYMPHOCYTES % (AUTO) 33.1 % (21-51); MEAN CORPUSCULAR HEMOGLOBIN 30.7 PG (27.0-31.0); MEAN CORPUSCULAR HGB CONC 33.5 % (33.0-36.5); MEAN CORPUSCULAR VOLUME 91.5 FL (78-98); MEAN PLATELET VOLUME 8.2 FL (7.4-10.4); MONOCYTES % (AUTO) 0.5 % (2-12); NEUTROPHILS # (AUTO) 3.4 X10'3 (1.8-7.7); NEUTROPHILS % (AUTO) 66.1 % (42-75); RED CELL DISTRIBUTION WIDTH 15.4 % (11.5-14.5); WHITE BLOOD COUNT 5.2 X10'3 (4.5-11.0)
[2017-12-24 17:43] LABS: HEMATOCRIT 19.3 % (35.0-45.0); HEMOGLOBIN 6.4 g/dl (12.0-16.0); PLATELET COUNT 42 X10'3 (140-440)
[2017-12-24 17:51] LABS: ALANINE AMINOTRANSFERASE 457 U/L (12-78); ALBUMIN 1.2 G/DL (3.4-5.0); ALBUMIN/GLOBULIN RATIO 0.9 (1.1-1.5); ALKALINE PHOSPHATASE 45 IU/L (46-116); ANION GAP 19 (8-16); ASPARTATE AMINO TRANSFERASE 862 U/L (10-37); BILIRUBIN,TOTAL 0.6 MG/DL (0.1-1.0); BLOOD UREA NITROGEN 31 MG/DL (7-18); BUN/CREATININE RATIO 14.9 (6.6-38.0); CHLORIDE 118 MMOL/L (99-107); CREATININE 2.08 MG/DL (0.40-0.90); GLUCOSE 93 MG/DL (70-104); TOTAL CARBON DIOXIDE 19.3 MMOL/L (24-32); TOTAL PROTEIN 2.5 G/DL (6.4-8.2); eGFR 22 ML/MIN
[2017-12-24 18:00] LABS: CALCIUM 12.6 MG/DL (8.5-10.1); POTASSIUM 7.2 MMOL/L (3.5-5.1); SODIUM 156 MMOL/L (135-145); TROPONIN I 0.25 NG/ML (0.0-0.05)
[2017-12-24] MEDS ORDERED: CADD PCA waste documentation MC PRN (18:05)
[2017-12-24] MEDS ORDERED: naloxone 0.4 mg/ml inj IV PRN (18:05)
[2017-12-25] MEDS ORDERED: mineral oil/petrolatum ophthal oint EACHEYE SCH (14:00)
== END 2017-12-24 21:17 | disposition expired | DRG 871 ==
LOC: ER 10:20 → ED HOLD 13:29 → PCU 3S 17:24 → CICU 2S 23:18
PROVIDERS: ADMIT Internal Medicine; ATTEND Internal Medicine Critical Care Medicine
PROC: 5A12012 Performance of Cardiac Output, Single, Manual (ICD-10-PCS; 2017-12-23)
PROC: 30233L1 Transfusion of Nonautologous Fresh Plasma into Peripheral Vein, Percutaneous Approach (ICD-10-PCS; principal; 2017-12-24)
PROC: 5A1935Z Respiratory Ventilation, Less than 24 Consecutive Hours (ICD-10-PCS; 2017-12-24)
PROC: 30233N1 Transfusion of Nonautologous Red Blood Cells into Peripheral Vein, Percutaneous Approach (ICD-10-PCS; 2017-12-24)
PROC: 30233R1 Transfusion of Nonautologous Platelets into Peripheral Vein, Percutaneous Approach (ICD-10-PCS; 2017-12-24)
PROC: 30233M1 Transfusion of Nonautologous Plasma Cryoprecipitate into Peripheral Vein, Percutaneous Approach (ICD-10-PCS; 2017-12-24)
PROC: 30233K1 Transfusion of Nonautologous Frozen Plasma into Peripheral Vein, Percutaneous Approach (ICD-10-PCS; 2017-12-24)
PROC: 0BH17EZ Insertion of Endotracheal Airway into Trachea, Via Natural or Artificial Opening (ICD-10-PCS; 2017-12-24)
PROC: 02HV33Z Insertion of Infusion Device into Superior Vena Cava, Percutaneous Approach (ICD-10-PCS; 2017-12-24)
PROC: 04HY32Z Insertion of Monitoring Device into Lower Artery, Percutaneous Approach (ICD-10-PCS; 2017-12-24)
PROC: 4A133B1 Monitoring of Arterial Pressure, Peripheral, Percutaneous Approach (ICD-10-PCS; 2017-12-24)
PROC: 4A133J1 Monitoring of Arterial Pulse, Peripheral, Percutaneous Approach (ICD-10-PCS; 2017-12-24)
DX: A41.9 Sepsis, unspecified organism (principal); J18.9 Pneumonia, unspecified organism; J96.00 Acute respiratory failure, unspecified whether with hypoxia or hypercapnia; I46.9 Cardiac arrest, cause unspecified; R65.21 Severe sepsis with septic shock; N17.9 Acute kidney failure, unspecified; K55.9 Vascular disorder of intestine, unspecified; D68.9 Coagulation defect, unspecified; J44.0 Chronic obstructive pulmonary disease with (acute) lower respiratory infection; E87.2 Acidosis; A09 Infectious gastroenteritis and colitis, unspecified; I10 Essential (primary) hypertension; I48.0 Paroxysmal atrial fibrillation; D64.9 Anemia, unspecified; R74.0 Nonspecific elevation of levels of transaminase and lactic acid dehydrogenase [LDH]; I48.2 Chronic atrial fibrillation; E86.0 Dehydration; E03.9 Hypothyroidism, unspecified; F17.200 Nicotine dependence, unspecified, uncomplicated; Z51.5 Encounter for palliative care; Z95.0 Presence of cardiac pacemaker; Z79.899 Other long term (current) drug therapy; Z79.01 Long term (current) use of anticoagulants; Z82.49 Family history of ischemic heart disease and other diseases of the circulatory system
CPT/HCPCS: 36415; 36600; 71045; 74176; 80048; 80053; 81001; 82803; 82810; 82948; 83605; 83735; 84100; 84145; 84484; 85018; 85025; 85027; 85379; 85384; 85610; 85730; 86885; 86900; 86901; 86920; 87040; 87070; 93005; 93308; 94002; 94003; 94640; 94760; 96360; 96361; 99291; A6213; A6257; A6449; C1751; C1758; J0171; J1170; J1265; J1580; J1644; J1720; J1956; J2250; J2543; J3430; J3490; J7030; J7060; J7120; J9211; P9012; P9016; P9035; P9045; P9047; P9059